=== PATIENT | male | born 1960 | race American Indian/Alaskan Native ===

== ENCOUNTER 2019-03-21 13:00 | Outpatient (AMBR) | payer MEDICAID, OTHER, SELFPAY ==
--- NOTE | 2019-03-12 15:35 | PT.ODAYNRPT ---
PT Outpatient Daily Note Date of Service: March 12, 2019 OP Daily Note Visit Reasons: encounter for other specified aftercare Outpatient Physical Therapy Treatment Date: 03/12/19 Subjective: Doing well, no significant pain in the shoulder today Objective: See F/S for therex Assessment: Improving rep count with resistive therex today with low tissue irritability. Plan: Continue per POC Length of Time (minutes) of Treatment: 30 Minutes Office Procedures PT Procedures PT Date of Service: 03/12/19 Therapeutic Exercise 30 minutes: Yes
--- NOTE | 2019-03-14 14:59 | PT.ODAYNRPT ---
PT Outpatient Daily Note Date of Service: March 14, 2019 OP Daily Note Visit Reasons: encounter for other specified aftercare Outpatient Physical Therapy Treatment Date: 03/14/19 Subjective: Doing well, no significant pain in the shoulder and it feels stronger since starting therapy. Doing ADL's without problems. Objective: See F/S for therex Assessment: Increased rep count with resistive therex today with low tissue irritability. Plan: Continue per POC Length of Time (minutes) of Treatment: 30 Minutes Office Procedures PT Procedures PT Date of Service: 03/12/19 Therapeutic Exercise 30 minutes: Yes PT Procedures PT Date of Service: 03/14/19 Therapeutic Exercise 30 minutes: Yes
--- NOTE | 2019-03-19 18:02 | PT.ODAYNRPT ---
PT Outpatient Daily Note Date of Service: March 19, 2019 OP Daily Note Visit Reasons: encounter for other specified aftercare Outpatient Physical Therapy Treatment Date: 03/19/19 Subjective: Doing well, no significant pain in the shoulder and it feels stronger since starting therapy. Doing ADL's without problems. Wants to RTW soon. Objective: See F/S for therex Assessment: Increased rep count with resistive therex today with low tissue irritability. Plan: Continue per POC Length of Time (minutes) of Treatment: 30 Minutes Office Procedures PT Procedures PT Date of Service: 03/12/19 Therapeutic Exercise 30 minutes: Yes PT Procedures PT Date of Service: 03/14/19 Therapeutic Exercise 30 minutes: Yes PT Procedures PT Date of Service: 03/19/19 Therapeutic Exercise 30 minutes: Yes
--- NOTE | 2019-03-21 13:34 | PT.ODS1RPT ---
PT OP Progress/Discharge Note Date of Service: March 21, 2019 Progress Note/DC Note Progress Note/Discharge Note: Progress Note Patient Information Visit Reasons: encounter for other specified aftercare Service Continue Service or Discharge: Continue Service Status Subjective: Doing well, no significant pain in the shoulder and it feels stronger since starting therapy. Doing ADL's without problems. Wants to RTW soon. Objective: R shoulder ArOM: Strength: FF: 155 deg 4-/5 Abd: 164 deg 4-/5 ERot: 90 deg 3+/5 Assessment: Pt has attended 5 Rx visits and made progress with therapy goals. He has almost full AROM without pain but strength is lacking behind the goal of 4+/5. He hasn't RTW yet so not sure if he can tolerate work duties but he shoulder be able to except for lifting heavy objects. Pt would benefit from continued strengthening to meet goal. Plan: Continue per POC Office Procedures PT Procedures PT Date of Service: 03/21/19 Therapeutic Exercise 30 minutes: Yes PT Procedures PT Date of Service: 03/12/19 Therapeutic Exercise 30 minutes: Yes PT Procedures PT Date of Service: 03/14/19 Therapeutic Exercise 30 minutes: Yes PT Procedures PT Date of Service: 03/19/19 Therapeutic Exercise 30 minutes: Yes
== END 2019-04-07 23:59 | disposition home or self-care (01) ==
PROVIDERS: PCP Physician Assistant; Referring Provider Physician Assistant; Visit Provider Orthopaedic Surgery
DX: Z51.89 Encounter for other specified aftercare (principal)
CPT/HCPCS: 97110

== ENCOUNTER → 2025-08-06 | Outpatient (CLI) | payer BC, MEDICAID, SELFPAY ==
--- NOTE | 2025-08-06 08:10 | XR_ITS ---
Examination: Shoulder, left, 3 views Technique: Shoulder AP internal rotation, AP external rotation, Y view shoulder, 3 views Exam date and time : August 06, 2025, 0719 hours INDICATIONS: Shoulder pain and joint clicking beginning 2017 FINDINGS: Orthopedic screws humeral head Moderate osteoarthritis glenohumeral joint No shoulder fracture or dislocation Moderate osteoarthritis acromioclavicular joint IMPRESSION: Moderate osteoarthritis glenohumeral joint, stable compared with August 14, 2024
== END | disposition home or self-care (01) ==
LOC: SDIM 07:48
PROVIDERS: PCP Physician Assistant; Referring Provider Physician Assistant; Visit Provider Physician Assistant
DX: M19.012 Primary osteoarthritis, left shoulder (principal)
CPT/HCPCS: 73030